=== PATIENT | female | born 1995 | race Caucasian/White ===

== ENCOUNTER 2017-08-18 16:51 | Emergency (ER) | payer BC ==
[2017-08-18 18:17] LABS: ABS Basophils 0.1 10^3/ul (0-0.2); ABS Eosinophils 0.1 10^3/ul (0-0.6); ABS Lymphocytes 2.2 10^3/ul (1.0-4.8); ABS Monocytes 0.5 10^3/ul (0-0.8); ABS Neutrophils 5.8 10^3/ul (1.5-7.7); ABS Nucleated RBC 0 10^3/ul; Eosinophil % 0.7 % (0-6); Hematocrit 39 % (35-47); Hemoglobin 13.5 g/dl (12.0-16.0); Mean Corpuscular HGB Conc 35 g/dl (31-36); Mean Corpuscular Hemoglobin 31 pg (27-31); Mean Corpuscular Volume 90 fL (80-97); Mean Platelet Volume 7 um3 (7.4-10.4); Nucleated Red Blood Cells % 0; Platelet Count 296 10^3/ul (150-450); Red Blood Count 4.34 10^6/ul (4.0-5.4); Red Cell Distribution Width 13 % (10.5-15); White Blood Count 8.7 10^3/ul (3.5-10.8)
[2017-08-18 18:27] LABS: Urine Appearance Cloudy; Urine Blood 2+ (Negative); Urine Color Yellow; Urine Ketones Negative (Negative); Urine Protein Negative (Negative); Urine Urobilinogen Negative (Negative)
[2017-08-18 18:33] LABS: EGFR Non-African American 92.8 (>60)
[2017-08-18] MEDS ORDERED: Acetaminophen TAB* 325 MG PO ONE (19:11)
--- NOTE | 2017-08-18 21:46 | ED ---
Bruna Morgan Thomas, scribed for Severiano Biggs MD on 08/18/17 at 1728 . Psychiatric Complaint - HPI Summary HPI Summary: The patient is a 21 year old female with a long history of mild depression. She has been on Lexapro for the last 6 months. There was recently some stressor that made the patient become more depressed, but she does not elaborate this stressor. The patient has been having thoughts of taking an overdose but she has not acted on these thoughts. She has never been hospitalized. - History Of Current Complaint Chief Complaint: EDMentalHealth Time Seen by Provider: 08/18/17 16:59 Hx Obtained From: Patient Onset/Duration: Still Present Timing: Constant Severity Currently: Moderate Character: Depressed Aggravating Factor(s): Other - Unknown Alleviating Factor(s): Nothing Associated Signs And Symptoms: Positive: Negative Has Suicidal: Reports: Thoughts. Denies: With A Plan Recent Stressor(s): Unknown PMH/Surg Hx/FS Hx/Imm Hx Sensory History: Denies: Hx Legally Blind EENT History: Denies: Hx Deafness Psychiatric History: Reports: Hx Depression Infectious Disease History: No Infectious Disease History: Denies: Traveled Outside the [place] in Last 30 Days - Family History Known Family History: Negative: Other - depression - Social History Occupation: Student Lives: Dormitory/Roommates Alcohol Use: Occasionally Hx Substance Use: No Substance Use Type: Reports: None Hx Tobacco Use: No Smoking Status (MU): Never Smoked Tobacco Review of Systems Negative: Fever Positive: Other - SI without a plan, depression All Other Systems Reviewed And Are Negative: Yes Physical Exam - Summary Physical Exam Summary: Appearance: The patient is well-nourished in no acute distress and in no acute pain. Skin: The skin is warm and dry and skin color reflects adequate perfusion. HEENT: The head is normocephalic and atraumatic. The pupils are equal and reactive. The conjunctivae are clear and without drainage. Nares are patent and without drainage. Mouth reveals moist mucous membranes and the throat is without erythema and exudate. The external ears are intact. The ear canals are patent and without drainage. The tympanic membranes are intact. Neck: the neck is supple with full range of motion and non-tender. There are no carotid bruits. There is no neck vein distension. Respiratory: Chest is non-tender. Lungs are clear to auscultation and breath sounds are symmetrical and equal. Cardiovascular: Heart is regular rate and rhythm.~There is no murmur or rub auscultated.~There is no peripheral edema and pulses are symmetrical and equal. Abdomen: The abdomen is soft and non-tender. There are normal bowel sounds heard in all four quadrants and there is no organomegaly palpated. Musculoskeletal: There is no back tenderness noted. Extremities are non-tender with full range of motion. There is good capillary refill. There is no peripheral edema or calf tenderness elicited. Neurological: Patient is alert and oriented to person, place and time. The patient has symmetrical motor strength in all four extremities. Cranial nerves are grossly intact. Deep tendon reflexes are symmetrical and equal in all four extremities. Psychiatric: The patient has an appropriate affect and does not exhibit any anxiety or depression. Triage Information Reviewed: Yes Vital Signs On Initial Exam: Initial Vitals Temp Pulse Resp BP Pulse Ox 98.0 F 95 18 136/68 98 08/18/17 16:54 08/18/17 16:54 08/18/17 16:54 08/18/17 16:54 08/18/17 16:54 Vital Signs Reviewed: Yes Diagnostics - Vital Signs Vital Signs Temp Pulse Resp BP Pulse Ox 08/18/17 16:54 98.0 F 95 18 136/68 98 - Laboratory Lab Results: Lab Results 08/18/17 08/18/17 08/18/17 Range/Units 17:10 17:10 18:10 WBC (3.5-10.8) 10^3/ul RBC (4.0-5.4) 10^6/ul Hgb (12.0-16.0) g/dl Hct (35-47) % MCV (80-97) fL MCH (27-31) pg MCHC (31-36) g/dl RDW (10.5-15) % Plt Count (150-450) 10^3/ul MPV (7.4-10.4) um3 Neut % (Auto) (38-83) % Lymph % (Auto) (25-47) % [place] % (Auto) (1-9) % Eos % (Auto) (0-6) % Baso % (Auto) (0-2) % Absolute Neuts (auto) (1.5-7.7) 10^3/ul Absolute Lymphs (auto) (1.0-4.8) 10^3/ul Absolute Monos (auto) (0-0.8) 10^3/ul Absolute Eos (auto) (0-0.6) 10^3/ul Absolute Basos (auto) (0-0.2) 10^3/ul Absolute Nucleated RBC 10^3/ul Nucleated RBC % Sodium 139 (133-145) mmol/L Potassium 3.5 (3.5-5.0) mmol/L Chloride 107 (101-111) mmol/L Carbon Dioxide 23 (22-32) mmol/L Anion Gap 9 (2-11) mmol/L BUN 16 (6-24) mg/dL Creatinine 0.79 (0.51-0.95) mg/dL Est GFR ( Amer) 119.3 (>60) Est GFR (Non-Af Amer) 92.8 (>60) BUN/Creatinine Ratio 20.3 H (8-20) Glucose 118 H (70-100) mg/dL Calcium 9.3 (8.6-10.3) mg/dL Total Bilirubin 0.50 (0.2-1.0) mg/dL AST 18 (13-39) U/L ALT 20 (7-52) U/L Alkaline Phosphatase 45 (34-104) U/L Total Protein 7.1 (6.4-8.9) g/dL Albumin 4.1 (3.2-5.2) g/dL Globulin 3.0 (2-4) g/dL Albumin/Globulin Ratio 1.4 (1-3) TSH 0.96 (0.34-5.60) mcIU/mL Beta HCG, Quant < 0.60 mIU/mL Urine Color Yellow Urine Appearance Cloudy Urine pH 6.0 (5-9) Ur Specific [place] 1.030 (1.010-1.030) Urine Protein Negative (Negative) Urine Ketones Negative (Negative) Urine Blood 2+ H (Negative) Urine Nitrate Negative (Negative) Urine Bilirubin Negative (Negative) Urine Urobilinogen Negative (Negative) Ur Leukocyte Esterase 1+ H (Negative) Urine WBC (Auto) 1+(6-10/hpf) H (Absent) Urine RBC (Auto) 2+(6-10/hpf) H (Absent) Ur Squamous Epith Cells Present H (Absent) Urine Bacteria 1+ H (Absent) Urine Glucose Negative (Negative) Urine Ascorbic Acid * H (Negative) Salicylates < 2.50 (<30) mg/dL Urine Opiates Screen None detected (None Detect) Acetaminophen < 15 mcg/mL Ur Barbiturates Screen None detected (None Detect) Ur Phencyclidine Scrn None detected (None Detect) Ur Amphetamines Screen None detected (None Detect) U Benzodiazepines Scrn None detected (None Detect) Urine Cocaine Screen None detected (None Detect) U Cannabinoids Screen Presumptive positive H (None Detect) Serum Alcohol < 10 (<10) mg/dL 08/18/17 Range/Units 18:10 WBC 8.7 (3.5-10.8) 10^3/ul RBC 4.34 (4.0-5.4) 10^6/ul Hgb 13.5 (12.0-16.0) g/dl Hct 39 (35-47) % MCV 90 (80-97) fL MCH 31 (27-31) pg MCHC 35 (31-36) g/dl RDW 13 (10.5-15) % Plt Count 296 (150-450) 10^3/ul MPV 7 L (7.4-10.4) um3 Neut % (Auto) 67.4 (38-83) % Lymph % (Auto) 25.0 (25-47) % [place] % (Auto) 6.3 (1-9) % Eos % (Auto) 0.7 (0-6) % Baso % (Auto) 0.6 (0-2) % Absolute Neuts (auto) 5.8 (1.5-7.7) 10^3/ul Absolute Lymphs (auto) 2.2 (1.0-4.8) 10^3/ul Absolute Monos (auto) 0.5 (0-0.8) 10^3/ul Absolute Eos (auto) 0.1 (0-0.6) 10^3/ul Absolute Basos (auto) 0.1 (0-0.2) 10^3/ul Absolute Nucleated RBC 0 10^3/ul Nucleated RBC % 0 Sodium (133-145) mmol/L Potassium (3.5-5.0) mmol/L Chloride (101-111) mmol/L Carbon Dioxide (22-32) mmol/L Anion Gap (2-11) mmol/L BUN (6-24) mg/dL Creatinine (0.51-0.95) mg/dL Est GFR ( Amer) (>60) Est GFR (Non-Af Amer) (>60) BUN/Creatinine Ratio (8-20) Glucose (70-100) mg/dL Calcium (8.6-10.3) mg/dL Total Bilirubin (0.2-1.0) mg/dL AST (13-39) U/L ALT (7-52) U/L Alkaline Phosphatase (34-104) U/L Total Protein (6.4-8.9) g/dL Albumin (3.2-5.2) g/dL Globulin (2-4) g/dL Albumin/Globulin Ratio (1-3) TSH (0.34-5.60) mcIU/mL Beta HCG, Quant mIU/mL Urine Color Urine Appearance Urine pH (5-9) Ur Specific [place] (1.010-1.030) Urine Protein (Negative) Urine Ketones (Negative) Urine Blood (Negative) Urine Nitrate (Negative) Urine Bilirubin (Negative) Urine Urobilinogen (Negative) Ur Leukocyte Esterase (Negative) Urine WBC (Auto) (Absent) Urine RBC (Auto) (Absent) Ur Squamous Epith Cells (Absent) Urine Bacteria (Absent) Urine Glucose (Negative) Urine Ascorbic Acid (Negative) Salicylates (<30) mg/dL Urine Opiates Screen (None Detect) Acetaminophen mcg/mL Ur Barbiturates Screen (None Detect) Ur Phencyclidine Scrn (None Detect) Ur Amphetamines Screen (None Detect) U Benzodiazepines Scrn (None Detect) Urine Cocaine Screen (None Detect) U Cannabinoids Screen (None Detect) Serum Alcohol (<10) mg/dL Result Diagrams: 08/18/17 18:10 08/18/17 18:10 Lab Statement: Any lab studies that have been ordered have been reviewed, and results considered in the medical decision making process. Course/Dx - Course Course Of Treatment: Ms. Grijalva presented for a MHE due to depression and suicidal thoughts without a plan. She was medically cleared and is in the Flex Unit awaiting a MHE. - Differential Dx/Clinical Impression Provider Diagnosis: Depression Discharge - Discharge Plan Condition: Stable Disposition: OTHER Discharge Disposition Comment: Signed out to Dr. Clinton pending mental health evaluation. [facility] - The documentation as recorded by the Bruna willoughby Thomas accurately reflects the service I personally performed and the decisions made by me, Severiano Biggs MD.
[2017-08-18] MEDS ORDERED: Citalopram TAB* 20 MG PO SCH (23:00)
--- NOTE | 2017-08-19 06:53 | ED ---
Sj Morgan Julia, scribed for Pedro Luis Clinton MD on 08/19/17 at 0639 . Progress - Progress Note Progress Note: Patient was signed out from Dr. Biggs for a mental health hold. Patient was stable through out the night and will be signed out back to Dr. Biggs at shift change. - Consult/PCP Time Called: 17:00 Course/Dx - Course Course Of Treatment: Ms. Grijalva presented for a MHE due to depression and suicidal thoughts without a plan. She was medically cleared and is in the Flex Unit awaiting a MHE. - Diagnoses Provider Diagnoses: Depression The documentation as recorded by the Sj willoughby Julia accurately reflects the service I personally performed and the decisions made by Mary Beth loo Kirk, MD.
--- NOTE | 2017-08-19 09:08 | PN ---
ED Flex Patient Progress Note Date of Service: 08/18/17 Subjective: This is a 21 year-old F who is pending discharge to home after being evaluated by Dr Thornton and has outpatient services set up with [facility]. Is currently on a MHU hold. Pt offers no complaints at this time. Objective: Vitals: Most recent vital signs documented below. General NAD, Alert and oriented x3. Heart: rrr at 92 bpm Lungs: CTA or with rales, rhonchi, wheezing Laboratory: Current laboratory results documented below. Assessment: awaiting disposition plan depression/anxiety Plan: Pending psychiatric consultation to discharge with outpatient services set up and after evaluation with Dr Thornton. will follow up daily, Vital Signs Temp Pulse Resp BP Pulse Ox 97.6 F 102 16 137/85 99 08/18/17 19:08 08/18/17 19:08 08/18/17 19:08 08/18/17 19:08 08/18/17 19:08 Lab Results - Entire Visit 08/18/17 08/18/17 08/18/17 18:10 18:10 17:10 WBC 8.7 RBC 4.34 Hgb 13.5 Hct 39 MCV 90 MCH 31 MCHC 35 RDW 13 Plt Count 296 MPV 7 L Neut % (Auto) 67.4 Lymph % (Auto) 25.0 [place] % (Auto) 6.3 Eos % (Auto) 0.7 Baso % (Auto) 0.6 Absolute Neuts (auto) 5.8 Absolute Lymphs (auto) 2.2 Absolute Monos (auto) 0.5 Absolute Eos (auto) 0.1 Absolute Basos (auto) 0.1 Absolute Nucleated RBC 0 Nucleated RBC % 0 Sodium 139 Potassium 3.5 Chloride 107 Carbon Dioxide 23 Anion Gap 9 BUN 16 Creatinine 0.79 Est GFR ( Amer) 119.3 Est GFR (Non-Af Amer) 92.8 BUN/Creatinine Ratio 20.3 H Glucose 118 H Calcium 9.3 Total Bilirubin 0.50 AST 18 ALT 20 Alkaline Phosphatase 45 Total Protein 7.1 Albumin 4.1 Globulin 3.0 Albumin/Globulin Ratio 1.4 TSH 0.96 Beta HCG, Quant < 0.60 Urine Color Yellow Urine Appearance Cloudy Urine pH 6.0 Ur Specific [place] 1.030 Urine Protein Negative Urine Ketones Negative Urine Blood 2+ H Urine Nitrate Negative Urine Bilirubin Negative Urine Urobilinogen Negative Ur Leukocyte Esterase 1+ H Urine WBC (Auto) 1+(6-10/hpf) H Urine RBC (Auto) 2+(6-10/hpf) H Ur Squamous Epith Cells Present H Urine Bacteria 1+ H Urine Glucose Negative Urine Ascorbic Acid * H Salicylates < 2.50 Urine Opiates Screen Acetaminophen < 15 Ur Barbiturates Screen Ur Phencyclidine Scrn Ur Amphetamines Screen U Benzodiazepines Scrn Urine Cocaine Screen U Cannabinoids Screen Serum Alcohol < 10 08/18/17 17:10 WBC RBC Hgb Hct MCV MCH MCHC RDW Plt Count MPV Neut % (Auto) Lymph % (Auto) [place] % (Auto) Eos % (Auto) Baso % (Auto) Absolute Neuts (auto) Absolute Lymphs (auto) Absolute Monos (auto) Absolute Eos (auto) Absolute Basos (auto) Absolute Nucleated RBC Nucleated RBC % Sodium Potassium Chloride Carbon Dioxide Anion Gap BUN Creatinine Est GFR ( Amer) Est GFR (Non-Af Amer) BUN/Creatinine Ratio Glucose Calcium Total Bilirubin AST ALT Alkaline Phosphatase Total Protein Albumin Globulin Albumin/Globulin Ratio TSH Beta HCG, Quant Urine Color Urine Appearance Urine pH Ur Specific [place] Urine Protein Urine Ketones Urine Blood Urine Nitrate Urine Bilirubin Urine Urobilinogen Ur Leukocyte Esterase Urine WBC (Auto) Urine RBC (Auto) Ur Squamous Epith Cells Urine Bacteria Urine Glucose Urine Ascorbic Acid Salicylates Urine Opiates Screen None detected Acetaminophen Ur Barbiturates Screen None detected Ur Phencyclidine Scrn None detected Ur Amphetamines Screen None detected U Benzodiazepines Scrn None detected Urine Cocaine Screen None detected U Cannabinoids Screen Presumptive positive H Serum Alcohol
[2017-08-19 09:36] VITALS: BP 135/75
--- NOTE | 2017-08-19 22:11 | ED ---
Shon Morgan Tiffany, scribed for Ana Mcknight MD on 08/19/17 at 1027 . Progress - Progress Note Progress Note: Patient not signed out to Dr. Biggs at shift change. Dr. Mcknight will assume patient care instead. - Consult/PCP Time Called: 17:00 Course/Dx - Course Course Of Treatment: Discussed patient care with Twan from [facility] at [phone]. Twan spoke with Dr. Thornton who evaluated and cleared patient. Twan also spoke with Deepthi, an [facility] safety representative. Patient will be referred to CAP at [facility]. Diagnosed with mood disorder. - Diagnoses Provider Diagnoses: Mood disorder The documentation as recorded by the Shon willoughby Tiffany accurately reflects the service I personally performed and the decisions made by Juan Luis loo Barbara J, MD.
== END 2017-08-19 10:01 ==
LOC: ED 16:51
DX: F39 Unspecified mood [affective] disorder (principal)
CPT/HCPCS: 36415; 80053; 80307; 80320; 80329; 81003; 81015; 84443; 84702; 85025; 87086; 99283; A9270-GY; G0480